=== PATIENT | female | born 1990 | race Caucasian/White ===

== ENCOUNTER 2024-02-29 11:37 | Emergency (ER) | payer BC ==
[~2024-02-29] VITALS: Ht 175.3 cm; Wt 68.2 kg
[2024-02-29 11:42] VITALS: BP 113/75; PULSE 92; TEMP 98.5; O2SAT 98
[2024-02-29 11:53] VITALS: RESP 18
[2024-02-29] MEDS ORDERED: CEFD300C3 PO (12:21)
== END 2024-02-29 12:28 | disposition home or self-care (01) ==
LOC: ER 11:37
DX: J20.9 Acute bronchitis, unspecified (principal)
CPT/HCPCS: 71045; 99283